=== PATIENT | female | born 1965 ===

== ENCOUNTER → 2017-03-11 | Emergency (ER) | payer OTHER ==
[~2017-03-11] VITALS: Ht 170.2 cm; Wt 87.5 kg
[~2017-03-11] MED LIST: FLONASE ALLERG9.9 ML NASAL; KETO10TA2 PO; MUCINEX DM ER1 EAC1 PO; ORPH100T PO; ZITHROMAX TRI-500 MG PO; ZYRTEC10 MG PO
== END | disposition home or self-care (01) ==
LOC: ER 22:16
DX: J01.00 Acute maxillary sinusitis, unspecified (principal)

== ENCOUNTER → 2017-06-14 | Emergency (ER) | payer OTHER ==
[~2017-06-14] VITALS: Ht 170.2 cm; Wt 89.8 kg
== END | disposition left against medical advice (07) ==
LOC: ER 14:18
DX: Z53.20 Procedure and treatment not carried out because of patient's decision for unspecified reasons (principal)